=== PATIENT | male | born 1985 | race African-American/Black ===

== ENCOUNTER 2021-05-11 13:49 | Emergency (ER) | payer OTHER ==
[~2021-05-11 13:49] MED LIST: ADDERALL 20 MG20 MG PO; ASPIRIN CHEWABL81 MG PO; MICARDIS HCT 81 EAC1 PO; NORVASC5 MG PO; PROBIOTIC1 EAC1 PO; PROTONIX 40MG T40 MG PO; TRUVADA 200 MG1 EACH PO; ZYRTEC10 MG PO
[2021-05-11 14:26] LABS: BASOPHIL 0.3 % (0-2); EOSINOPHIL 0.7 % (0-5); HCT 46.6 % (42.0-52.0); HGB 15.8 g/dl (13.2-18.0); LYMPHOCYTE 29.4 % (15-48); MCH 31.5 pg (25.0-31.0); MCHC 33.9 g/dL (32.0-36.0); MONOCYTE 12.3 % (0-12); MPV 10.4 fL (6.0-9.5); NEUTROPHIL 57.3 % (41-80); NRBC 0; PLT 120 K/uL (150-400); RBC 5.01 M/uL (4.70-6.00); RDW 11.7 % (11.5-14.0); WBC 2.9 K/uL (4.0-10.5)
[2021-05-11 14:43] LABS: ALBUMIN 3.7 g/dL (3.4-5.0); BILIRUBIN - TOTAL 0.5 mg/dL (0.2-1.0); BUN/CREAT RATIO (CALC) 6.9 RATIO; CREATININE 1.3 mg/dL (0.67-1.17); GLOBULIN (CALCULATION) 3.9 g/dL; POTASSIUM 3.7 mmol/L (3.5-5.1); TOTAL PROTEIN 7.6 g/dL (6.4-8.2)
== END 2021-05-11 18:23 | disposition home or self-care (01) ==
LOC: FER 13:49
PROVIDERS: Nurse Practitioner Family
DX: U07.1 COVID-19 (principal); E86.0 Dehydration; I10 Essential (primary) hypertension; Z23 Encounter for immunization
CPT/HCPCS: 36415; 80053; 85025; J2405; J7030; M0243; Q0244; U0002